=== PATIENT | male | born 1990 | race Caucasian/White ===

== ENCOUNTER 2017-04-09 18:00 | Emergency (ER) | payer OTHER ==
[2017-04-09] MEDS: ALBUTEROL/IPRATROPIUM (NEB) 3 ML AMP HHN (20:21)
[2017-04-09] MEDS: DEXAMETHASONE (1 MG/ML PO SYG) PO (20:29)
== END 2017-04-09 21:15 | disposition home or self-care (01) ==
LOC: FTE 18:00
DX: J45.901 Unspecified asthma with (acute) exacerbation (principal); F17.210 Nicotine dependence, cigarettes, uncomplicated
CPT/HCPCS: 94664; 99284-25

== ENCOUNTER 2017-07-20 00:06 | Emergency (ER) | payer OTHER | END 2017-07-20 05:06 | disposition left against medical advice (07) | LOC: FTE 00:06 | DX: L72.3 Sebaceous cyst (principal); J45.909 Unspecified asthma, uncomplicated; Z87.891 Personal history of nicotine dependence | CPT/HCPCS: 99283; Z7502 ==